=== PATIENT | male | born 1975 | race Caucasian/White ===

== ENCOUNTER → 2023-08-14 06:39 | Outpatient (REF) | payer OTHER, SELFPAY | LOC: MRI 06:39 | PROVIDERS: ATTENDING PHYSICIAN Physician Assistant; REFERRING PHYSICIAN Orthopaedic Surgery | DX: M54.16 Radiculopathy, lumbar region (principal) | CPT/HCPCS: 72148 ==

== ENCOUNTER 2023-11-05 13:29 | Emergency (ER) | payer OTHER, SELFPAY ==
[2023-11-05 13:31] VITALS: BP 142/92
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
[2023-11-05 14:00] VITALS: BP 140/80
== END 2023-11-05 15:56 | disposition home or self-care (01) ==
LOC: EMR 13:29
PROVIDERS: EMERGENCY PHYSICIAN Emergency Medicine
DX: S09.90XA Unspecified injury of head, initial encounter (principal); Y93.55 Activity, bike riding
CPT/HCPCS: 99284; 70450